=== PATIENT | female | born 1970 | race Caucasian/White ===

== ENCOUNTER 2022-08-14 17:15 | Emergency (ER) | payer OTHER ==
[~2022-08-14] VITALS: Ht 162.6 cm; Wt 63.5 kg
[~2022-08-14 17:15] MED LIST: LISI2.5T48 PO
[2022-08-14 17:31] VITALS: BP_SYST 45
[2022-08-14] MEDS ORDERED: ONDANSETRON 4 MG ODT TAB PO ONE (18:30)
[2022-08-14] MEDS ORDERED: ACETAMINOPHEN 500 MG TABLET PO ONE (18:30)
[2022-08-14] MEDS ORDERED: ONDA-8 TL (19:17)
[2022-08-14 20:05] VITALS: BP_SYST 116
== END 2022-08-14 20:05 | disposition home or self-care (01) ==
LOC: SED 17:15
DX: S00.81XA Abrasion of other part of head, initial encounter (principal); I10 Essential (primary) hypertension; Z79.899 Other long term (current) drug therapy; W18.30XA Fall on same level, unspecified, initial encounter; Y93.89 Activity, other specified; Y92.89 Other specified places as the place of occurrence of the external cause; Y99.8 Other external cause status
CPT/HCPCS: 99284; 70450; 76376; Q0162